=== PATIENT | male | born 2000 | race Caucasian/White ===

== ENCOUNTER 2022-12-04 19:41 | Emergency (ER) | payer BC, SELFPAY ==
[2022-12-04 19:58] VITALS: TEMP 37.4; BMI 25.7
--- NOTE | 2022-12-04 20:00 | CRLHL7_ITS ---
For Patients: As a result of the Cures Act, medical imaging exams and procedure reports are released immediately into your electronic medical record. You may view this report before your referring provider. If you have questions, please contact your health care provider. Indication: Trauma. Technique: Left ankle, 3 views. Comparison: None. Findings/Impression: Bones: Alignment is normal. No fractures or bone lesions. No sign of acute injury. Joint spaces: Unremarkable. Soft tissues: Unremarkable. Dictated by Alexander Ortiz MD @ 12/04/2022 9:38:17 PM (Electronically Signed)
[2022-12-04 20:05] VITALS: BP 153/72; PULSE 82; RESP 18; O2SAT 98
--- NOTE | 2022-12-04 20:17 | ED.GENADULT ---
HPI - General Adult General Time Seen by Provider: 20:17 Date Seen: 12/04/22 Chief complaint: Extremity Pain/Injury, Lower Stated complaint: Twisted L ankle Time Seen by Provider: 12/04/22 20:08 Source: patient Mode of arrival: ambulatory Limitations: no limitations History of Present Illness HPI narrative: 22-year-old male who comes in today with left ankle pain. He was playing basketball and came down on the ankle wrong a couple days ago. He has been using an Ajay wrap and taking Tylenol ibuprofen. Tonight when he took the Ajay wrap off he noted bruising on the foot down to the toes and became concerned, came to the emergency department for further evaluation. Related Data Allergies Allergy/AdvReac Type Severity Reaction Status Date / Time peanut Allergy Verified 12/04/22 19:58 shelfish Allergy Uncoded 12/04/22 19:58 PFS PFS Social History Smoking Status: Never smoker Do you use any of these nicotine containing products: None Second hand tobacco smoke exposure: No How often do you have a drink containing alcohol: monthly or less How many standard drinks containing alcohol do you have on a typical day: 1 or 2 How often do you have six or more drinks on one occasion: Less than monthly AUDIT-C Alcohol total score: 2 Non-prescribed substance use: marijuana (any form) Non-prescribed substance use details: [facility] service: No Exam Narrative: Exam Narrative: General: well nourished , NAD Head: Atraumatic and normocephalic ENT: External ears and external nose are normal Eyes: Conjunctiva clear, pupils are equal reactive, external ocular motions are intact Neck: Full spontaneous range of motion of the neck Lungs: No respiratory distress Musculoskeletal: Swelling over the lateral malleolus with bruising of the lateral and medial heel and along the 5th metatarsal laterally but no tenderness of the 5th metatarsal. Neurologic: No gross focal neurologic deficits Skin: No rashes Psych: Mood and affect are appropriate Const: Vital Signs, click to edit/add: Vital Signs - 24 hr 12/04/22 19:58 12/04/22 20:05 Temperature 99.3 F Pulse Rate [Pulse Oximeter] 82 Respiratory Rate 18 Blood Pressure [Ri ght Upper Arm] 153/72 H Pulse Oximetry 98 Oxygen Delivery Me thod Room Air Course Course Hospital Course: Patient seen examined, prior records reviewed. Patient with an inversion ankle injury a couple days ago, concerned about bruising spreading down to the foot. We discussed that this is usual for this type of injury. X-rays ordered as patient is concerned about fracture but clinically this seems unlikely. If x-rays are negative, patient can be discharged with a gel splint and continue Tylenol and ibuprofen. Reevaluation(s) Reevaluation #1: X-ray independently interpreted by me does not demonstrate any acute fracture. Patient is stable for discharge. Time: 20:40 Reevaluation #2: X-rays still has not been read. Discussed that I do not see any acute fractures on x-ray, will contact patient if radiology disagrees. Time: 21:26 Vital Signs Vital signs: Initial Vital Signs Temperature 99.3 F 12/04/22 19:58 Temperature Source Temporal Artery Scan 12/04/22 19:58 Vital Signs Temperature 99.3 F 12/04/22 19:58 Temperature 99.3 F 12/04/22 19:58 Pulse Rate 82 12/04/22 20:05 Respiratory Rate 18 12/04/22 20:05 Blood Pressure 153/72 H 12/04/22 20:05 Pulse Oximetry 98 12/04/22 20:05 Oxygen Delivery Method Room Air 12/04/22 20:05 Discharge Plan Discharge Clinical Impression: Ankle sprain and strain Patient Disposition: Home, Self-Care Condition: Stable Instructions: Ankle Sprain (DC) Additional Instructions: Splint for comfort. Tylenol and ibuprofen as needed for pain. Activity Level: Activity as Tolerated Discharge Diet: Regular Stand Alone Forms: [employer] Info Instructions
== END 2022-12-04 21:38 | disposition home or self-care (01) ==
PROVIDERS: Emergency Provider Family Medicine
DX: S93.402A Sprain of unspecified ligament of left ankle, initial encounter (principal); X50.1XXA Overexertion from prolonged static or awkward postures, initial encounter
CPT/HCPCS: 73610; 99283

== ENCOUNTER 2023-01-10 15:29 | Emergency (ER) | payer BC, SELFPAY ==
[2023-01-10 15:37] VITALS: BP 151/66; PULSE 81; RESP 20; TEMP 36.8; O2SAT 99; BMI 25.1
--- NOTE | 2023-01-10 21:07 | ED_ITS ---
HPI - General Adult General Date Seen: 01/10/23 Chief complaint: Skin/Abscess/Foreign Body Stated complaint: Sores Time Seen by Provider: 01/10/23 16:45 Source: patient Mode of arrival: ambulatory Limitations: no limitations History of Present Illness HPI narrative: Patient is a 23-year-old male who presents for re-evaluation of a rash which he says he 1st noticed on his penis in September. He says that he saw somebody who thought it was maybe due to chafing and prescribed hydrocortisone. He had been using that, it seemed to get better but then he stopped using hydrocortisone and it now seems worse. It never completely resolved. He says it itches a little bit sometimes it has never been painful. He does not have any concerns about exposures to STDs no penile discharge or dysuria. In the meantime, he has developed a couple of lesions 1 on the back of each arm and a couple of lesions on his scalp. No systemic complaints. Related Data Home Medications Medication Instructions Recorded Confirmed hydrocortisone 2.5 % topical 1 applic topical BID 01/10/23 01/10/23 ointment Previous Rx's Medication Instructions Recorded nystatin-triamcinolone 100,000 1 applic topical BID #30 grams 01/10/23 unit/gram-0.1 % topical ointment Allergies Allergy/AdvReac Type Severity Reaction Status Date / Time peanut Allergy Verified 12/04/22 19:58 shelfish Allergy Uncoded 12/04/22 19:58 Review of Systems Status of ROS: Reports: 6 or more systems reviewed and unremarkable except as noted in History and below [facility] Social History Smoking Status: Never smoker Do you use any of these nicotine containing products: None Second hand tobacco smoke exposure: No How often do you have a drink containing alcohol: monthly or less How many standard drinks containing alcohol do you have on a typical day: 1 or 2 How often do you have six or more drinks on one occasion: Less than monthly AUDIT-C Alcohol total score: 2 Non-prescribed substance use: marijuana (any form) Non-prescribed substance use details: [facility] service: No Exam Narrative: Exam Narrative: Vital signs reviewed In general, an alert, well-appearing young man. Head: Normocephalic, atraumatic. : On the penis there is a well-circumscribed somewhat oblong shaped lesion which is a little bit scaly with some central clearing. No discharge, no ulcerations. Skin: He has 1 lesion on each arm over the triceps area which is round, erythematous with evidence of thin ruptured blister, and a couple of smaller other similar lesions on his scalp. This looks consistent with bullous impetigo. Const: Vital Signs, click to edit/add: Vital Signs - 24 hr 01/10/23 15:37 Temperature 98.2 F Pulse Rate [Pulse Oximeter] 81 Respiratory Rate 20 Blood Pressure [Ri ght Upper Arm] 151/66 H Pulse Oximetry 99 Oxygen Delivery Me thod Room Air Documenting provider has reviewed patient's vital signs: yes Course Course Hospital Course: I do not think these two skin lesions are related. The penile lesion looks as if it could be tinea, I think it is worth treating for that anyway. It does not look related to a sexually transmitted infection to me. The other skin lesions look like bullous impetigo and will treat with cephalexin. I am giving him a combination ointment nystatin and triamcinolone to try on the penile lesion. If not improving over the next couple of weeks he should be seen again. Vital Signs Vital signs: Initial Vital Signs Temperature 98.2 F 01/10/23 15:37 Temperature Source Temporal Artery Scan 01/10/23 15:37 Pulse Rate 81 01/10/23 15:37 Respiratory Rate 20 01/10/23 15:37 Blood Pressure 151/66 H 01/10/23 15:37 Blood Pressure Mean 94 01/10/23 15:37 Blood Pressure Position Sitting 01/10/23 15:37 Pulse Oximetry 99 01/10/23 15:37 Oxygen Delivery Method Room Air 01/10/23 15:37 Vital Signs Temperature 98.2 F 01/10/23 15:37 Pulse Rate 81 01/10/23 15:37 Respiratory Rate 20 01/10/23 15:37 Blood Pressure 151/66 H 01/10/23 15:37 Pulse Oximetry 99 01/10/23 15:37 Oxygen Delivery Method Room Air 01/10/23 15:37 Temperature 98.2 F 01/10/23 15:37 Pulse Rate 81 01/10/23 15:37 Respiratory Rate 20 01/10/23 15:37 Blood Pressure 151/66 H 01/10/23 15:37 Pulse Oximetry 99 01/10/23 15:37 Oxygen Delivery Method Room Air 01/10/23 15:37 Discharge Plan Discharge Clinical Impression: Bullous impetigo, Tinea Patient Disposition: Home, Self-Care Condition: Stable Instructions: Impetigo (DC), Skin Yeast Infection (ED) Additional Instructions: 1) impetigo: Take antibiotics as prescribed. If not improving over the next week, return or see your primary clinic. 2) tinea: Topical antifungal/steroid ointment as prescribed. It may take a couple of weeks to start seeing improvement. Prescriptions: New nystatin-triamcinolone 100,000-0.1 unit/gram-% ointment 1 applic topical BID Qty: 30 0RF No Action hydrocortisone 2.5 % ointment 1 applic topical BID Follow Up/Referrals: Provider,Not a Local [Primary Care Provider] - Stand Alone Forms: [email or web address] Info Instructions
== END 2023-01-10 17:34 | disposition home or self-care (01) ==
PROVIDERS: Emergency Provider Emergency Medicine
DX: L01.03 Bullous impetigo (principal); B35.9 Dermatophytosis, unspecified
CPT/HCPCS: 99283